=== PATIENT | female | born 2000 | race African-American/Black ===

== ENCOUNTER 2023-08-08 09:24 | Inpatient (IN) ==
[2023-08-08 09:44] VITALS: BMI 28.0
[2023-08-08 09:50] LABS: BILIRUBIN,URINE NEGATIVE (NEGATIVE); BLOOD/HEMOGLOBIN,URINE NEGATIVE (NEGATIVE); GLUCOSE, URINE NEGATIVE (NEGATIVE); KETONES,URINE NEGATIVE (NEGATIVE); LEUKOCYTE ESTERASE ,URINE 2+ (NEGATIVE); NITRITES,URINE NEGATIVE (NEGATIVE); PROTEIN,URINE NEGATIVE (NEGATIVE); UROBILINOGEN,URINE NORMAL (NORMAL)
[2023-08-08 10:02] LABS: APPEARANCE,URINE CLEAR (CLEAR); COLOR,URINE YELLOW (YELLOW)
[2023-08-08 10:03] LABS: BACTERIA,URINE 1+ /HPF (NEGATIVE); RBC,URINE 0-2 /HPF (0-3); SQUAMOUS EPITHELIAL CELL,UR MODERATE /HPF (NEGATIVE)
[2023-08-08 10:07] LABS: AMNISURE ROM TEST NO MEMBRANES RUPTURE (NO RUPTURE)
[2023-08-08] MEDS ORDERED: NUBAIN INJ 20 MG AMP IVP PRN (10:07)
[2023-08-08] MEDS ORDERED: ZOFRAN INJ 4 MG VIAL IVP PRN (10:07)
[2023-08-08] MEDS ORDERED: REGLAN INJ 10 MG VIAL IVP PRN (10:07)
[2023-08-08 10:21] LABS: BASOPHILS % (AUTO) 0.4 % (0.2-1.0); EOSINOPHILS % (AUTO) 0.3 % (0.9-2.9); HEMATOCRIT 32.6 % (36.0-47.0); HEMOGLOBIN 10.7 g/dL (12.0-16.0); LYMPHOCYTES # (AUTO) 2.1 X10^3/uL (1.3-2.9); LYMPHOCYTES % (AUTO) 19.9 % (21.0-51.0); MEAN CORPUSCULAR HEMOGLOBIN 27.3 pg (27.0-34.0); MEAN CORPUSCULAR HGB CONC 32.9 g/dL (33.0-35.0); MEAN PLATELET VOLUME 7.4 fL (7.4-11.0); MONOCYTES # (AUTO) 0.7 x10^3/uL (0.3-0.8); MONOCYTES % (AUTO) 6.8 % (0.0-13.0); NEUTROPHILS # (AUTO) 7.6 x10^3/uL (2.2-4.8); NEUTROPHILS % (AUTO) 72.6 % (42.0-75.0); PLATELET COUNT 306 X10^3/uL (150.0-450.0); RED BLOOD COUNT 3.92 X10^6/uL (3.5-5.4); RED CELL DISTRIBUTION WIDTH 13.7 % (11.6-16.5); WHITE BLOOD COUNT 10.5 X10^3/uL (3.6-10.0)
[2023-08-08] MEDS: D5 1/2 NS 1,000 ML 1,000 ML IV SCH (10:22)
[2023-08-08] MEDS: OXYTOCIN 20 UNIT/1,000 ML-NS 20 UNIT/1,000 ML PLAST..BAG IV PRN (10:30)
[2023-08-08 10:40] LABS: ALANINE AMINOTRANSFERASE 18 Units/L (12-78); ALBUMIN 2.2 g/dL (3.4-5.0); ALKALINE PHOSPHATASE 120 Units/L (46-116); ASPARTATE AMINO TRANSFERASE 17 Units/L (15-37); BLOOD UREA NITROGEN 9 mg/dL (7-18); CALCIUM 8.5 mg/dL (8.5-10.1); CARBON DIOXIDE 24.5 mmol/L (21-32); CHLORIDE 103 mmol/L (98-107); COR CA(FOR HYPOALB) 9.9 mg/dL (8.5-10.1); CREATININE 0.58 mg/dL (0.55-1.02); GLUCOSE 75 mg/dL (65-99); POTASSIUM 3.7 mmol/L (3.5-5.1); SODIUM 135 mmol/L (136-145); TOTAL PROTEIN 6.7 g/dL (6.4-8.2); eGFR NON BLACK RACES > 60 (>60)
[2023-08-08] MEDS: D5 1/2 NS 1,000 ML 1,000 ML IV ONE (11:17)
[2023-08-08] MEDS: BETADINE SOLN ONE (15:50)
[2023-08-08] MEDS: PITOCIN IVP ONE (16:00)
[2023-08-08] MEDS ORDERED: MOTRIN TAB 800 MG PO PRN (16:16)
[2023-08-08] MEDS: OXYTOCIN 20 UNIT/1,000 ML-NS 20 UNIT/1,000 ML PLAST..BAG IV SCH (16:32)
[2023-08-08] MEDS: PITOCIN ONE (16:32)
[2023-08-08] MEDS ORDERED: AMBIEN PO PRN (16:57)
[2023-08-08] MEDS ORDERED: DERMOPLAST PAIN RELIEF SPRAY TOP PRN (16:57)
[2023-08-08] MEDS ORDERED: MILK OF MAGNESIA PO PRN (16:57)
[2023-08-08] MEDS: ADACEL or BOOSTRIX TDaP VACCINE IM ONE (19:50)
[2023-08-09 05:52] LABS: HEMOGLOBIN 10.8 g/dL (12.0-16.0)
[2023-08-09] MEDS: PRENATAL PLUS PO SCH (09:05)
[2023-08-09 09:56] VITALS: RESP 18
[2023-08-09 17:07] VITALS: BP 90/55; PULSE 73; TEMP 97.8; O2SAT 99
== END 2023-08-09 20:30 | disposition home or self-care (01) | DRG 807 ==
LOC: ER 09:24 → LD 10:17 → MED/SURG 16:59
PROVIDERS: ADMIT Obstetrics & Gynecology Obstetrics; ATTEND Obstetrics & Gynecology Obstetrics